=== PATIENT | female | born 1970 | race Caucasian/White ===

== ENCOUNTER 2018-09-14 12:37 | Emergency (ER) | payer OTHER ==
[~2018-09-14] VITALS: Ht 162.6 cm; Wt 89.9 kg
[~2018-09-14 12:37] MED LIST: [UNRECOGNIZED DRUG - REMARK]
[2018-09-14 12:50] VITALS: BP 142/85
[2018-09-14 13:23] LABS: BASOPHILS # (AUTO) 0.1 K/uL (0.00-0.22); BASOPHILS % (AUTO) 1.3 % (0.0-2.0); EOSINOPHILS # (AUTO) 0.4 K/uL (0-0.4); EOSINOPHILS % (AUTO) 5.9 % (0.0-4.0); HEMATOCRIT 45.3 % (36-48); HEMOGLOBIN 15.2 g/dL (12.0-16.0); LYMPHOCYTES # (AUTO) 2.3 K/uL (2.5-16.5); MEAN CORPUSCULAR HEMOGLOBIN 31 pg (27-31); MEAN CORPUSCULAR HGB CONC 34 g/dL (33-37); MEAN CORPUSCULAR VOLUME 93.6 fL (80-94); MONOCYTES # (AUTO) 0.7 K/uL (0.8-1.0); MONOCYTES % (AUTO) 10.7 % (1.7-9.3); NEUTROPHILS # (AUTO) 2.7 K/uL (1.8-7.7); NEUTROPHILS % (AUTO) 44.1 % (42.2-75.2); PLATELET COUNT (AUTO) 239 K/uL (140-450); RED BLOOD CELL COUNT(AUTO) 4.84 MIL/uL (4.20-5.40); RED CELL DISTRIBUTION WIDTH 13.3 % (11.6-13.7); WHITE BLOOD COUNT (AUTO) 6.1 K/uL (4.8-10.8)
[2018-09-14] MEDS: NACL 0.9% 1,000 ML IV ONE (13:27)
[2018-09-14 13:36] LABS: ANION GAP 9.4 (8-16); CARBON DIOXIDE 27.1 mmol/L (21-32); CREATININE 0.9 mg/dL (0.6-1.3); POTASSIUM 3.5 mmol/L (3.5-5.1)
[2018-09-14 13:44] LABS: ALBUMIN 3.6 g/dL (3.4-5.0); TOTAL BILIRUBIN 0.3 mg/dL (0.0-1.0)
[2018-09-14 13:45] LABS: PROTHROMBIN TIME 9.7 secs (10.8-13.4)
[2018-09-14 14:41] VITALS: BP 135/82
== END 2018-09-14 14:41 | disposition home or self-care (01) ==
LOC: MED 12:37
DX: N94.6 Dysmenorrhea, unspecified (principal); R03.0 Elevated blood-pressure reading, without diagnosis of hypertension
CPT/HCPCS: 36415; 76856; 80053; 85025; 85610; 85730; 96360; 99285; J7030; Q0092

== ENCOUNTER 2018-11-16 09:11 | Emergency (ER) | payer OTHER ==
[~2018-11-16] VITALS: Ht 160 cm; Wt 88.2 kg
[2018-11-16 09:26] VITALS: BP 131/84
--- NOTE | 2018-11-16 09:29 | NUR ---
PT AMBULATED TO ER BED 07
--- NOTE | 2018-11-16 09:35 | NUR ---
48/F BIB SELF C/O LT SHOULDER PAIN 9/ X 4 DAYS AND RT EYE IRRITATION/ERYTHEMA SINCE THIS MORNING. PER PT WAS PAINTING A BUILDING 4 DAYS AGO; UNABLE TO RAISE LT ARM BEYOND HER LT SHOULDER AND HAVE DIFFICULTY SLEEPING. DENIES FALLING, OTHER INJURIES, NVD, CLAUDIO, DIZZINESS.HX; BORDERLINE DM. RX; METFORMIN, NORCO. PATIENT POSITIONED FOR COMFORT; HOB ELEVATED; BEDRAILS UP X2; BED DOWN. ER MD MADE AWARE OF PT STATUS.
--- NOTE | 2018-11-16 10:01 | NUR ---
PT TAKEN TO RADIOLOGY AT THIS TIME
--- NOTE | 2018-11-16 10:09 | NUR ---
PT RETURNED FROM RADIOLOGY AT THIS TIME
[2018-11-16 11:05] VITALS: BP 121/79
--- NOTE | 2018-11-16 11:05 | NUR ---
Patient discharged with v/s stable. Written and verbal after care instructions given and explained. Patient alert, oriented and verbalized understanding of instructions. Ambulatory with steady gait. All questions addressed prior to discharge. ID band removed. Patient advised to follow up with PMD. Rx of ERYTHROMYCIN OINTMENT given. Patient educated on indication of medication including possible reaction and side effects. Opportunity to ask questions provided and answered.
== END 2018-11-16 11:05 | disposition home or self-care (01) ==
LOC: MED 09:11
DX: H10.9 Unspecified conjunctivitis (principal); B96.89 Other specified bacterial agents as the cause of diseases classified elsewhere; M25.512 Pain in left shoulder
CPT/HCPCS: 73020; 81002; 81025; 99283

== ENCOUNTER 2019-06-15 11:25 | Emergency (ER) | payer OTHER ==
[~2019-06-15] VITALS: Ht 160 cm; Wt 87.7 kg
[2019-06-15 11:40] VITALS: BP 131/90
--- NOTE | 2019-06-15 12:03 | NUR ---
PATIENT AMBULATED TO BED 1 AT THIS TIME.
--- NOTE | 2019-06-15 12:18 | NUR ---
C/O INTERMITTENT LEFT BREAST/CHEST DULL PAIN RADIATING TO LEFT SIDE OF NECK X THIS PAST WEEKEND;---UNSURE IF WAS ANXIETY SHE WAS UBERING AND WORKED A FESTIVAL DENIES N/V OR SOB ----ALSO CONCERNED OF POSSIBLE STI ---RECENTLY HAD BEEN SEPERATED WITH SPOUSE AND HAS HAD A VAGINAL FOUL ODOR X 1 MONTH---HAS TRIED VINEGAR RINSES BUT FOUL ODOR RETURNS---DENIES DISCHARGE OR DYSURIA
[2019-06-15 13:00] LABS: BASOPHILS # (AUTO) 0.1 K/uL (0.00-0.22); BASOPHILS % (AUTO) 1.2 % (0.0-2.0); EOSINOPHILS # (AUTO) 0.3 K/uL (0-0.4); EOSINOPHILS % (AUTO) 4.2 % (0.0-4.0); HEMATOCRIT 47.1 % (36-48); HEMOGLOBIN 15.9 g/dL (12.0-16.0); LYMPHOCYTES # (AUTO) 2.2 K/uL (2.5-16.5); LYMPHOCYTES % (AUTO) 30.2 % (20.5-51.1); MEAN CORPUSCULAR HEMOGLOBIN 32 pg (27-31); MEAN CORPUSCULAR HGB CONC 34 g/dL (33-37); MONOCYTES # (AUTO) 0.6 K/uL (0.8-1.0); MONOCYTES % (AUTO) 8.6 % (1.7-9.3); NEUTROPHILS # (AUTO) 4.1 K/uL (1.8-7.7); NEUTROPHILS % (AUTO) 55.8 % (42.2-75.2); PLATELET COUNT (AUTO) 216 K/uL (140-450); RED BLOOD CELL COUNT(AUTO) 5.07 MIL/uL (4.20-5.40); RED CELL DISTRIBUTION WIDTH 13.4 % (11.6-13.7); WHITE BLOOD COUNT (AUTO) 7.4 K/uL (4.8-10.8)
[2019-06-15 13:07] LABS: APPEARANCE,URINE CLEAR (CLEAR); BILIRUBIN,URINE NEGATIVE (NEGATIVE); BLOOD, URINE NEGATIVE (NEGATIVE); COLOR,URINE YELLOW (YELLOW); LEUKOCYTE ESTERASE ,URINE NEGATIVE (NEGATIVE); NITRITE, URINE NEGATIVE (NEGATIVE); UGLUCOSE NEGATIVE (NEGATIVE)
[2019-06-15 13:15] LABS: ANION GAP 10.3 (8-16); CARBON DIOXIDE 30.5 mmol/L (21-32); POTASSIUM 3.8 mmol/L (3.5-5.1)
[2019-06-15 13:21] LABS: ALBUMIN 3.9 g/dL (3.4-5.0); TOTAL BILIRUBIN 0.6 mg/dL (0.0-1.0)
--- NOTE | 2019-06-15 14:28 | NUR ---
pt denies cp at this time---trop is negative continues to wait for dispo
[2019-06-15 15:06] VITALS: BP 103/61
--- NOTE | 2019-06-15 15:07 | NUR ---
Patient discharged with v/s stable. Written and verbal after care instructions given and explained. Patient verbalized understanding. Ambulatory with steady gait. All questions addressed prior to discharge. Advised to follow up with PMD.
[2019-06-17 06:09] LABS: CHLAMYDIA TRACHOMATIS AMP DNA Negative (Negative)
== END 2019-06-15 15:07 | disposition home or self-care (01) ==
LOC: MED 11:25
DX: R07.89 Other chest pain (principal); N76.0 Acute vaginitis; R03.0 Elevated blood-pressure reading, without diagnosis of hypertension; E11.9 Type 2 diabetes mellitus without complications; E07.9 Disorder of thyroid, unspecified; F17.200 Nicotine dependence, unspecified, uncomplicated; Z98.890 Other specified postprocedural states
CPT/HCPCS: 36415; 71045; 80053; 81003; 81025; 82948; 84484; 85025; 87070; 87205; 87210; 87491; 93005; 99284; Q0092; 81002

== ENCOUNTER 2021-12-31 16:25 | Emergency (ER) | payer OTHER ==
[~2021-12-31] VITALS: Ht 160 cm; Wt 76.7 kg
[2021-12-31 16:29] VITALS: BP 150/98
--- NOTE | 2021-12-31 16:42 | NUR ---
COREY RODRIGUEZ EXAMINING PT
[2021-12-31] MEDS ORDERED: MORPHINE SULFATE 4 MG/ML SYR IM ONE (17:00)
[2021-12-31] MEDS ORDERED: ONDANSETRON 4 MG ODT PO ONE (17:00)
--- NOTE | 2021-12-31 17:00 | NUR ---
51 Y/O F C/O RT ARM PAIN 5 DAYS. PT HAD SURGERY ON 12/27 FOR FRACTURED ARM. WAS MOVING A FRIDGE IN NOV 2021 AND BROKE ARM. STATES FEELS FLUID IN ARM. 08/19 SHARP PAIN AND NUMBNESS. MEDHX: MARISELA VANEGAS
[2021-12-31 18:10] VITALS: BP 144/85
--- NOTE | 2021-12-31 18:10 | NUR ---
Patient discharged with v/s stable. Written and verbal after care instructions given and explained with teachback. Patient verbalized understanding. Ambulatory with steady gait. All questions addressed prior to discharge. Advised to follow up with PMD. Pt denied feelings of N/V/D or dizziness at this time.
== END 2021-12-31 18:10 | disposition home or self-care (01) ==
LOC: MED 16:25
DX: G89.18 Other acute postprocedural pain (principal); M79.601 Pain in right arm; E11.9 Type 2 diabetes mellitus without complications; E07.9 Disorder of thyroid, unspecified
CPT/HCPCS: 96372; 99283; J2270; Q0162

== ENCOUNTER 2022-12-07 04:35 | Emergency (ER) | payer OTHER ==
[~2022-12-07] VITALS: Ht 160 cm; Wt 81.6 kg
[2022-12-07 04:51] VITALS: BP 124/74
--- NOTE | 2022-12-07 05:00 | NUR ---
52 Y/O PT PRESENTS WITH A SINUS INFECTION SINCE OF 2022. PT STATED SHE FINISHED ANTIBIOTICS FROM A URGENT CARE WITH UNRELIEF. PT STATED SHE HAS MINOR PAIN IN HER LOWER BACK AND HAS A COUGH WITH WHITE FOAMY FLEM. PT HAS SOME NAUSEA WITH LOSS OF APPETITE BUT DENIES VD. PT STATED HER TONGUE FEELS NUMB. PT IS A&OX4, SKIN INTACT PMH- NKA
--- NOTE | 2022-12-07 05:00 | NUR ---
PT AMBULATORY TO BED #6
--- NOTE | 2022-12-07 05:31 | NUR ---
DR. REYES AT BEDSIDE
[2022-12-07] MEDS ORDERED: NAPR-54 PO (05:35)
[2022-12-07] MEDS ORDERED: LEVO-481 PO (05:35)
--- NOTE | 2022-12-07 05:40 | NUR ---
Patient discharged with v/s stable. Written and verbal after care instructions given and explained. Patient alert, oriented and verbalized understanding of instructions. Ambulatory with steady gait. All questions addressed prior to discharge. ID band removed. Patient advised to follow up with PMD. Rx of LEVOFLOXACIN AND NAPROXEN given. Opportunity to ask questions provided and answered.
[2022-12-07] MEDS ORDERED: LORazepam 2 MG/ML VIAL ONE (07:08)
== END 2022-12-07 05:40 | disposition home or self-care (01) ==
LOC: MED 04:35
DX: J01.00 Acute maxillary sinusitis, unspecified (principal); E11.9 Type 2 diabetes mellitus without complications; Z79.4 Long term (current) use of insulin; Z79.899 Other long term (current) drug therapy
CPT/HCPCS: 99283; J2060

== ENCOUNTER 2023-10-14 09:44 | Emergency (ER) | payer OTHER ==
[~2023-10-14] VITALS: Ht 160 cm; Wt 60.3 kg
[~2023-10-14 09:44] MED LIST changes: +LEVO-481 PO; +NAPR-54 PO; -[UNRECOGNIZED DRUG - REMARK]
[2023-10-14 10:34] VITALS: BP 119/84; PULSE 93; RESP 18; TEMP 97.8; O2SAT 100
[2023-10-14] MEDS ORDERED: NAPR-1704 PO (11:34)
[2023-10-14] MEDS ORDERED: NIRM1TAB PO (11:34)
[2023-10-14] MEDS ORDERED: IBUPROFEN 400 MG TAB PO ONE (11:35)
[2023-10-14 11:42] VITALS: BP 121/84; PULSE 88; RESP 18; TEMP 98; O2SAT 100
[2023-10-14 12:07] LABS: FLU A ANTIGEN negative (NEGATIVE); FLU B ANTIGEN negative (NEGATIVE)
== END 2023-10-14 11:42 | disposition home or self-care (01) ==
LOC: MED 09:44
DX: B34.9 Viral infection, unspecified (principal); Z20.822 Contact with and (suspected) exposure to COVID-19; E11.9 Type 2 diabetes mellitus without complications; E03.9 Hypothyroidism, unspecified; Z79.4 Long term (current) use of insulin; Z79.899 Other long term (current) drug therapy
CPT/HCPCS: 99283